=== PATIENT | female | born 1960 | race Caucasian/White ===

== ENCOUNTER → 2017-06-24 | Outpatient (CLI) | payer OTHER | LOC: FIMAGING 15:10 | PROVIDERS: ATTEND Internal Medicine | DX: Z12.31 Encounter for screening mammogram for malignant neoplasm of breast (principal) | CPT/HCPCS: G0202 ==

== ENCOUNTER 2018-03-23 14:43 | Inpatient (IN) | payer OTHER ==
--- NOTE | 2018-03-23 14:55 | EDPHY ---
H & P Time Seen by Provider: 03/23/18 14:54 HPI/ROS: Chief complaint. Altered mental status HPI. 57-year-old female here with altered mental status. Apparently she was well last evening and went to a green party. Around midnight she complained to her that she had whole body pain. She did not specifically tell him that she had a headache but he asked her about 1 side of her body or the other and she said her whole body. He notes she seemed to be having trouble thinking and speaking. She can walk however she is slow and somewhat shuffling. She has confusion and amnesia to events yesterday. Maybe she has had a fever and has had a cough the last 2 days. She did take some cough medicine but did not apparently take any extra. There has been no complaint of chest pain or trouble breathing or abdominal pain. No similar symptoms previously. Patient tells me now she has a slight posterior headache ROS Constitutional. Possible fever Eyes. no problems with vision ENT. no sore throat, no nasal drainage Cardiovascular. no chest pain Respiratory. no shortness of breath, no cough Abdominal. no abdominal pain, no nausea/vomiting, no diarrhea . no problems urinating MS. no calf pain/swelling, no neck/back pain, no joint pain Skin. no rash Lymph. no swollen glands Neuro. Headache, confusion Past Medical/Surgical History: Hypothyroid, dyslipidemia Social History: , nonsmoker, no alcohol Smoking Status: Never smoked Physical Exam: General Appearance: Alert well-developed female moderate distress. Vital signs significant for temp 37.6 degrees and heart rate 108 Eyes: Pupils equal and round no pallor or injection. ENT, Mouth: Mucous membranes are moist. Respiratory: There are no retractions, lungs are clear to auscultation. Cardiovascular: Regular rate and rhythm. Gastrointestinal: Abdomen is soft and nontender, no masses, bowel sounds normal. Neurological: Awake and alert, sensory and motor exams grossly normal. Speech is slow but normal. Cranial nerves are intact. There is no pronator drift. [id number] is normal. Patient has confusion but able to do [id number] Skin: Warm and dry, no rashes. Musculoskeletal: Neck is supple nontender. Extremities symmetrical, full range of motion. Psychiatric: Patient is oriented X 2; patient cannot tell me month and thinks it is 19 something when I asked her about the year; there is no agitation. Constitutional: Initial Vital Signs Temperature (C) 37.0 C 03/23/18 14:46 Heart Rate 108 H 03/23/18 14:46 Respiratory Rate 18 03/23/18 14:46 Blood Pressure 127/90 H 03/23/18 14:46 O2 Sat (%) 94 03/23/18 14:46 O2 Delivery Mode Room Air Allergies/Adverse Reactions: No Known Allergies Allergy (Unverified 03/23/18 14:52) Home Medications: Medication Instructions Recorded Levothyroxine 03/23/18 Lipitor 10 mg (*) 03/23/18 Medical Decision Making - Diagnostics EKG Interpretation: EKG interpreted by me shows sinus tachycardia. Normal interval axis. QRS is normal there is no significant ST elevation or depression. There is no arrhythmia. The rate is 106 Imaging Results: Imaging Impressions Chest X-Ray 03/23/18 15:10 Impression: No acute findings in the chest. Chest x-ray interpreted by me is normal. 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 Less likely to be dissection. This is reviewed by me and discussed Dr. Lerner MRI head shows no evidence of stroke. Again reviewed by me and discussed with Dr. Lerner Procedures: IV normal saline, monitor. Sepsis workup. ED Course/Re-evaluation: I consulted and discussed case with Dr. Steele for neurology who recommends CTA of head and neck as well as MRI brain without contrast. Re-evaluation at 5:00 p.m.--patient's symptoms continue. She is awake. She has no complaints. She is still has poor memory of events from earlier today and yesterday Family and I discussed imaging lab EKG findings. We discussed treatment plan including recommendation for admission. She expresses understanding and agreement Patient does have a UTI. It is sent for culture. She is given IV Rocephin I consulted discussed case with Dr. Bran who agrees to the admission and will see the patient in the emergency department Differential Diagnosis: I considered sepsis, drug intoxication or withdrawal, transient global amnesia, CVA. - Data Points Laboratory Results: Laboratory Results 03/23/18 14:54 03/23/18 14:54 03/23/18 03/23/18 03/23/18 15:40 15:09 15:02 WBC RBC Hgb POC Hgb 14.6 gm/dL gm/dL (12.6-16.3) Hct POC Hct 43 % % (38-47) MCV MCH MCHC RDW Plt Count MPV Neut % (Auto) Lymph % (Auto) [place] % (Auto) Eos % (Auto) Baso % (Auto) Nucleat RBC Rel Count Absolute Neuts (auto) Absolute Lymphs (auto) Absolute Monos (auto) Absolute Eos (auto) Absolute Basos (auto) Absolute Nucleated RBC Immature Gran % Immature Gran # PT INR APTT POC Blood Source VENOUS Patient Temperature 37.0 DEGREES DEGREES POC VBG pH 7.46 H (7.31-7.42) POC VBG pCO2 31 mmHg L mmHg (40-44) POC VBG pO2 62 mmHg H mmHg (35-40) POC VBG HCO3 22 mEq/L mEq/L (22-26) POC VBG Total CO2 23 mEq/L mEq/L (21-27) POC VBG Base Excess -2.0 mEq/L mEq/L (-2.5-2.5) VBG Lactic Acid POC Mix VBG O2 Sat 93 % H % (65-75) POC Sodium 140 mEq/L mEq/L (135-145) Sodium POC Potassium 3.6 mEq/L mEq/L (3.3-5.0) Potassium POC Chloride 107 mEq/L mEq/L (97-110) Chloride Carbon Dioxide Anion Gap POC BUN 16 mg/dL mg/dL (7-23) BUN Creatinine POC Creatinine 0.8 mg/dL mg/dL (0.6-1.0) Estimated GFR Glucose POC Glucose 143 mg/dL H mg/dL (70-100) POC Lactic Acid [place] 1.0 mmol/L mmol/L (0.7-2.1) Calcium Total Bilirubin Urine Color YELLOW Urine Appearance MODERATELY TURBID Urine pH 5.0 (5.0-7.5) Ur Specific [place] 1.025 (1.002-1.030) Urine Protein NEGATIVE (NEGATIVE) Urine Ketones NEGATIVE (NEGATIVE) Urine Blood 2+ H (NEGATIVE) Urine Nitrate NEGATIVE (NEGATIVE) Urine Bilirubin NEGATIVE (NEGATIVE) Urine Urobilinogen NEGATIVE EU EU (0.2-1.0) Ur Leukocyte Esterase 3+ H (NEGATIVE) Urine RBC 15-25 /hpf H /hpf (0-3) Urine WBC 15-25 /hpf H /hpf (0-3) Ur Epithelial Cells TRACE /lpf /lpf (NONE-1+) Urine Mucus 1+ /lpf /lpf (NONE-1+) Urine Glucose NEGATIVE (NEGATIVE) Urine Opiates Screen NEGATIVE (NEGATIVE) Urine Barbiturates NEGATIVE (NEGATIVE) Ur Phencyclidine Scrn NEGATIVE (NEGATIVE) Ur Amphetamine Screen NEGATIVE (NEGATIVE) U Benzodiazepines Scrn NEGATIVE (NEGATIVE) Urine Cocaine Screen NEGATIVE (NEGATIVE) U Marijuana (THC) Screen NEGATIVE (NEGATIVE) 03/23/18 03/23/18 03/23/18 14:54 14:54 14:54 WBC RBC Hgb POC Hgb Hct POC Hct MCV MCH MCHC RDW Plt Count MPV Neut % (Auto) Lymph % (Auto) [place] % (Auto) Eos % (Auto) Baso % (Auto) Nucleat RBC Rel Count Absolute Neuts (auto) Absolute Lymphs (auto) Absolute Monos (auto) Absolute Eos (auto) Absolute Basos (auto) Absolute Nucleated RBC Immature Gran % Immature Gran # PT 13.7 SEC SEC (12.0-15.0) INR 1.03 (0.83-1.16) APTT 26.9 SEC SEC (23.0-38.0) POC Blood Source Patient Temperature POC VBG pH POC VBG pCO2 POC VBG pO2 POC VBG HCO3 POC VBG Total CO2 POC VBG Base Excess VBG Lactic Acid 1.0 mmol/L mmol/L (0.7-2.1) POC Mix VBG O2 Sat POC Sodium Sodium 140 mEq/L mEq/L (135-145) POC Potassium Potassium 3.8 mEq/L mEq/L (3.3-5.0) POC Chloride Chloride 110 mEq/L mEq/L (97-110) Carbon Dioxide 23 mEq/l mEq/l (22-31) Anion Gap 7 mEq/L L mEq/L (8-16) POC BUN BUN 16 mg/dL mg/dL (7-23) Creatinine 0.7 mg/dL mg/dL (0.6-1.0) POC Creatinine Estimated GFR > 60 Glucose 127 mg/dL H mg/dL (70-100) POC Glucose POC Lactic Acid Mayur Calcium 9.2 mg/dL mg/dL (8.5-10.4) Total Bilirubin 1.0 mg/dL mg/dL (0.1-1.4) Urine Color Urine Appearance Urine pH Ur Specific [place] Urine Protein Urine Ketones Urine Blood Urine Nitrate Urine Bilirubin Urine Urobilinogen Ur Leukocyte Esterase Urine RBC Urine WBC Ur Epithelial Cells Urine Mucus Urine Glucose Urine Opiates Screen Urine Barbiturates Ur Phencyclidine Scrn Ur Amphetamine Screen U Benzodiazepines Scrn Urine Cocaine Screen U Marijuana (THC) Screen 03/23/18 14:54 WBC 8.92 10^3/uL 10^3/uL (3.80-9.50) RBC 5.00 10^6/uL 10^6/uL (4.18-5.33) Hgb 14.8 g/dL g/dL (12.6-16.3) POC Hgb Hct 42.3 % % (38.0-47.0) POC Hct MCV 84.6 fL fL (81.5-99.8) MCH 29.6 pg pg (27.9-34.1) MCHC 35.0 g/dL g/dL (32.4-36.7) RDW 13.3 % % (11.5-15.2) Plt Count 196 10^3/uL 10^3/uL (150-400) MPV 9.5 fL fL (8.7-11.7) Neut % (Auto) 79.5 % H % (39.3-74.2) Lymph % (Auto) 14.3 % L % (15.0-45.0) [place] % (Auto) 5.6 % % (4.5-13.0) Eos % (Auto) 0.3 % L % (0.6-7.6) Baso % (Auto) 0.1 % L % (0.3-1.7) Nucleat RBC Rel Count 0.0 % % (0.0-0.2) Absolute Neuts (auto) 7.08 10^3/uL H 10^3/uL (1.70-6.50) Absolute Lymphs (auto) 1.28 10^3/uL 10^3/uL (1.00-3.00) Absolute Monos (auto) 0.50 10^3/uL 10^3/uL (0.30-0.80) Absolute Eos (auto) 0.03 10^3/uL 10^3/uL (0.03-0.40) Absolute Basos (auto) 0.01 10^3/uL L 10^3/uL (0.02-0.10) Absolute Nucleated RBC 0.00 10^3/uL 10^3/uL (0-0.01) Immature Gran % 0.2 % % (0.0-1.1) Immature Gran # 0.02 10^3/uL 10^3/uL (0.00-0.10) PT INR APTT POC Blood Source Patient Temperature POC VBG pH POC VBG pCO2 POC VBG pO2 POC VBG HCO3 POC VBG Total CO2 POC VBG Base Excess VBG Lactic Acid POC Mix VBG O2 Sat POC Sodium Sodium POC Potassium Potassium POC Chloride Chloride Carbon Dioxide Anion Gap POC BUN BUN Creatinine POC Creatinine Estimated GFR Glucose POC Glucose POC Lactic Acid [place] Calcium Total Bilirubin Urine Color Urine Appearance Urine pH Ur Specific [place] Urine Protein Urine Ketones Urine Blood Urine Nitrate Urine Bilirubin Urine Urobilinogen Ur Leukocyte Esterase Urine RBC Urine WBC Ur Epithelial Cells Urine Mucus Urine Glucose Urine Opiates Screen Urine Barbiturates Ur Phencyclidine Scrn Ur Amphetamine Screen U Benzodiazepines Scrn Urine Cocaine Screen U Marijuana (THC) Screen Medications Given: Discontinued Medications Sodium Chloride (Ns) 1,000 mls @ 0 mls/hr IV ONCE ONE; Wide Open PRN Reason: Protocol Stop: 03/23/18 15:25 Last Admin: 03/23/18 15:34 Dose: 1,000 mls Point of Care Test Results: Chemistry 03/23/18 15:02 POC Sodium 140 mEq/L mEq/L (135-145) POC Potassium 3.6 mEq/L mEq/L (3.3-5.0) POC Chloride 107 mEq/L mEq/L (97-110) POC BUN 16 mg/dL mg/dL (7-23) POC Creatinine 0.8 mg/dL mg/dL (0.6-1.0) POC Glucose 143 mg/dL H mg/dL (70-100) Blood Gas/Lactic Acid-Arterial 03/23/18 15:09 POC Blood Source VENOUS Blood Gas/Lactic Acid-Venous 03/23/18 15:09 POC VBG pH 7.46 H (7.31-7.42) POC VBG pCO2 31 mmHg L mmHg (40-44) POC VBG pO2 62 mmHg H mmHg (35-40) POC VBG HCO3 22 mEq/L mEq/L (22-26) POC VBG Total CO2 23 mEq/L mEq/L (21-27) POC VBG Base Excess -2.0 mEq/L mEq/L (-2.5-2.5) POC Mix VBG O2 Sat 93 % H % (65-75) POC Lactic Acid [place] 1.0 mmol/L mmol/L (0.7-2.1) ISTAT H&H 03/23/18 15:02 POC Hgb 14.6 gm/dL gm/dL (12.6-16.3) POC Hct 43 % % (38-47) Departure - Departure Disposition: [facility] Inpatient Acute Clinical Impression: Altered mental status Qualifiers: Altered mental status type: disorientation Qualified Code(s): R41.0 - Disorientation, unspecified Condition: Fair Referrals: NONE *PRIMARY CARE P,. [Primary Care Provider] - As per Instructions
--- NOTE | 2018-03-23 14:56 | CPEKG ---
Heart Rate: 106 RR Interval: 566 P-R Interval: 140 QRSD Interval: 84 QT Interval: 340 QTC Interval: 452 P [place]: 47 QRS [place]: 1 T Wave [place]: 18 EKG Severity - OTHERWISE NORMAL ECG - EKG Impression: SINUS TACHYCARDIA Electronically Signed By: Miles Campos 23-Mar-2018 16:54:51
[2018-03-23 15:20] LABS: PLATELET COUNT 196 10^3/uL (150-400)
[2018-03-23] MEDS ORDERED: NS 1,000 ML IV ONE ×2 (15:24→17:10)
[2018-03-23 15:28] LABS: INR 1.03 (0.83-1.16); PROTIME(PATIENT) 13.7 SEC (12.0-15.0)
[2018-03-23] MEDS ORDERED: IOPAMIDOL (ISOVUE 370) 100 ML BTL IV ONE (15:32)
[2018-03-23] MEDS ORDERED: ONDANSETRON 4 MG/2 ML VIAL IVP PRN (17:16)
[2018-03-23] MEDS ORDERED: ONDANSETRON DISINTEGRATING 4 MG TAB PO PRN (17:16)
--- NOTE | 2018-03-23 19:18 | PDGENHP ---
History and Physical - Chief Complaint Acute encephalopathy - History of Present Illness Primary care provider: Dr. Kari Cruz HPI: 57-year-old female presenting with acute encephalopathy characterized as confusion, delayed processing, thought blocking with associated preceding myalgias, dark urine. Patient's is the primary source of information, as the patient is having a difficult time expressing herself. The patient's reports that they had a very physically active day on 03/22, working in the garden for approximately 4 hr with minimal oral intake by the patient. He reports that he noted subsequent dark urine and the patient was expressing symptomatic myalgias with onset at approximately midnight on the evening prior to this presentation. Upon awakening on 03/23, the patient was having difficulty expressing herself, difficulty speaking sensically, and the duration of the symptoms persisted throughout the day, warranting presentation. The patient's did note associated nonproductive cough and the patient did express that her throat was feeling sore as were her tonsils. History Information - Allergies/Home Medication List Allergies/Adverse Reactions: No Known Allergies Allergy (Unverified 03/23/18 14:52) Home Medications: Ibuprofen [Motrin (*)] 400 mg PO Q8 PRN 03/23/18 [Last Taken 03/23/18] Levothyroxine [Synthroid 112 mcg (*)] 112 mcg PO DAILY06 03/23/18 [Last Taken ] Pravastatin Sodium [Pravachol] 40 mg PO DAILY 03/23/18 [Last Taken 03/22/18] I have personally reviewed and updated: family history, medical history, social history, surgical history - Past Medical History no pertinent PMH - Surgical History Reports: no pertinent surgical hx - Family History Additional family history: No family history of rheumatologic issues or kidney stones; patient's recently was treated for a URI - Social History Smoking Status: Never smoked Alcohol Use: None Drug Use: None Additional social history: Normally independent in ADLs Review of Systems Review of Systems: ROS: 10pt was reviewed & negative except for what was stated in HPI & below Constitutional: Reports: malaise EENMT: Reports: sore throat Respiratory: Reports: cough Muscolosketal: Reports: muscle pain, neck pain (Right-sided posterior) Neurological: Reports: other (Confusion, delayed thought processing, thought blocking) Physical Exam Physical Exam: Temp Pulse Resp BP Pulse Ox 38.1 C 84 18 166/96 H 95 03/23/18 18:48 03/23/18 18:48 03/23/18 18:48 03/23/18 18:48 03/23/18 18:48 Constitutional: no apparent distress, appears nourished, not in pain, No uncomfortable Eyes: PERRL, anicteric sclera, EOMI, other (No photophobia induced on exam) Ears, Nose, Mouth, Throat: moist mucous membranes, hearing normal, ears appear normal, no oral mucosal ulcers Cardiovascular: regular rate and rhythym, no murmur, rub, or gallop, No edema Respiratory: no respiratory distress, no rales or rhonchi, clear to auscultation Gastrointestinal: normoactive bowel sounds, no palpable masses, No guarding, No distension Genitourinary: other (Suprapubic tenderness, right flank tenderness) Skin: warm, No abrasion, No rash Musculoskeletal: other (Mild right posterior neck pain with left rotation as well as anterior flexion but no overt meningismus) Neurologic: sensation intact bilaterally, CN II-XII Intact, other (Notably word- finding difficulty, thought blocking, delayed processing), No AAOx3 (Alert awake oriented times person only), No weakness (Motor strength 5/5 bilaterally) , No facial droop Psychiatric: not anxious, encephalopathic, poor memory, No agitated Lab Data & Imaging Review 03/23/18 14:54 03/23/18 14:54 WBC 8.92 10^3/uL (3.80-9.50) 03/23/18 14:54 RBC 5.00 10^6/uL (4.18-5.33) 03/23/18 14:54 Hgb 14.8 g/dL (12.6-16.3) 03/23/18 14:54 POC Hgb 14.6 gm/dL (12.6-16.3) 03/23/18 15:02 Hct 42.3 % (38.0-47.0) 03/23/18 14:54 POC Hct 43 % (38-47) 03/23/18 15:02 MCV 84.6 fL (81.5-99.8) 03/23/18 14:54 MCH 29.6 pg (27.9-34.1) 03/23/18 14:54 MCHC 35.0 g/dL (32.4-36.7) 03/23/18 14:54 RDW 13.3 % (11.5-15.2) 03/23/18 14:54 Plt Count 196 10^3/uL (150-400) 03/23/18 14:54 MPV 9.5 fL (8.7-11.7) 03/23/18 14:54 Neut % (Auto) 79.5 % (39.3-74.2) H 03/23/18 14:54 Lymph % (Auto) 14.3 % (15.0-45.0) L 03/23/18 14:54 [place] % (Auto) 5.6 % (4.5-13.0) 03/23/18 14:54 Eos % (Auto) 0.3 % (0.6-7.6) L 03/23/18 14:54 Baso % (Auto) 0.1 % (0.3-1.7) L 03/23/18 14:54 Nucleat RBC Rel Count 0.0 % (0.0-0.2) 03/23/18 14:54 Absolute Neuts (auto) 7.08 10^3/uL (1.70-6.50) H 03/23/18 14:54 Absolute Lymphs (auto) 1.28 10^3/uL (1.00-3.00) 03/23/18 14:54 Absolute Monos (auto) 0.50 10^3/uL (0.30-0.80) 03/23/18 14:54 Absolute Eos (auto) 0.03 10^3/uL (0.03-0.40) 03/23/18 14:54 Absolute Basos (auto) 0.01 10^3/uL (0.02-0.10) L 03/23/18 14:54 Absolute Nucleated RBC 0.00 10^3/uL (0-0.01) 03/23/18 14:54 Immature Gran % 0.2 % (0.0-1.1) 03/23/18 14:54 Immature Gran # 0.02 10^3/uL (0.00-0.10) 03/23/18 14:54 PT 13.7 SEC (12.0-15.0) 03/23/18 14:54 INR 1.03 (0.83-1.16) 03/23/18 14:54 APTT 26.9 SEC (23.0-38.0) 03/23/18 14:54 POC Blood Source VENOUS 03/23/18 15:09 Patient Temperature 37.0 DEGREES 03/23/18 15:09 POC VBG pH 7.46 (7.31-7.42) H 03/23/18 15:09 POC VBG pCO2 31 mmHg (40-44) L 03/23/18 15:09 POC VBG pO2 62 mmHg (35-40) H 03/23/18 15:09 POC VBG HCO3 22 mEq/L (22-26) 03/23/18 15:09 POC VBG Total CO2 23 mEq/L (21-27) 03/23/18 15:09 POC VBG Base Excess -2.0 mEq/L (-2.5-2.5) 03/23/18 15:09 VBG Lactic Acid 1.0 mmol/L (0.7-2.1) 03/23/18 14:54 POC Mix VBG O2 Sat 93 % (65-75) H 03/23/18 15:09 POC Sodium 140 mEq/L (135-145) 03/23/18 15:02 Sodium 140 mEq/L (135-145) 03/23/18 14:54 POC Potassium 3.6 mEq/L (3.3-5.0) 03/23/18 15:02 Potassium 3.8 mEq/L (3.3-5.0) 03/23/18 14:54 POC Chloride 107 mEq/L (97-110) 03/23/18 15:02 Chloride 110 mEq/L (97-110) 03/23/18 14:54 Carbon Dioxide 23 mEq/l (22-31) 03/23/18 14:54 Anion Gap 7 mEq/L (8-16) L 03/23/18 14:54 POC BUN 16 mg/dL (7-23) 03/23/18 15:02 BUN 16 mg/dL (7-23) 03/23/18 14:54 Creatinine 0.7 mg/dL (0.6-1.0) 03/23/18 14:54 POC Creatinine 0.8 mg/dL (0.6-1.0) 03/23/18 15:02 Estimated GFR > 60 03/23/18 14:54 Glucose 127 mg/dL (70-100) H 03/23/18 14:54 POC Glucose 143 mg/dL (70-100) H 03/23/18 15:02 POC Lactic Acid [place] 1.0 mmol/L (0.7-2.1) 03/23/18 15:09 Calcium 9.2 mg/dL (8.5-10.4) 03/23/18 14:54 Total Bilirubin 1.0 mg/dL (0.1-1.4) 03/23/18 14:54 Urine Color YELLOW 03/23/18 15:40 Urine Appearance MODERATELY TURBID 03/23/18 15:40 Urine pH 5.0 (5.0-7.5) 03/23/18 15:40 Ur Specific [place] 1.025 (1.002-1.030) 03/23/18 15:40 Urine Protein NEGATIVE (NEGATIVE) 03/23/18 15:40 Urine Ketones NEGATIVE (NEGATIVE) 03/23/18 15:40 Urine Blood 2+ (NEGATIVE) H 03/23/18 15:40 Urine Nitrate NEGATIVE (NEGATIVE) 03/23/18 15:40 Urine Bilirubin NEGATIVE (NEGATIVE) 03/23/18 15:40 Urine Urobilinogen NEGATIVE EU (0.2-1.0) 03/23/18 15:40 Ur Leukocyte Esterase 3+ (NEGATIVE) H 03/23/18 15:40 Urine RBC 15-25 /hpf (0-3) H 03/23/18 15:40 Urine WBC 15-25 /hpf (0-3) H 03/23/18 15:40 Ur Epithelial Cells TRACE /lpf (NONE-1+) 03/23/18 15:40 Urine Mucus 1+ /lpf (NONE-1+) 03/23/18 15:40 Urine Glucose NEGATIVE (NEGATIVE) 03/23/18 15:40 Urine Opiates Screen NEGATIVE (NEGATIVE) 03/23/18 15:40 Urine Barbiturates NEGATIVE (NEGATIVE) 03/23/18 15:40 Ur Phencyclidine Scrn NEGATIVE (NEGATIVE) 03/23/18 15:40 Ur Amphetamine Screen NEGATIVE (NEGATIVE) 03/23/18 15:40 U Benzodiazepines Scrn NEGATIVE (NEGATIVE) 03/23/18 15:40 Urine Cocaine Screen NEGATIVE (NEGATIVE) 03/23/18 15:40 U Marijuana (THC) Screen NEGATIVE (NEGATIVE) 03/23/18 15:40 Visualized and Interpreted Chest x-ray results: Yes Chest X-Ray results: no infiltrate Visualized and Interpreted EKG results: Yes EKG Interpretation: Positive for: other (Sinus tach with Q-wave in lead 3) Assessment & Plan Assessment: 57-year-old female presents with acute encephalopathy Plan: 1. Acute encephalopathy. New problem this provider, further workup indicated. Evidenced by global brain dysfunction characterized as delayed processing, thought blocking, confusion, all of which are acute changes from her baseline, suddenly occurring on the morning of presentation and most likely secondary to the toxic effects of infection. Possible cause of infection include urinary tract with pyelonephritis verses upper respiratory verses meningitis. I think the most likely etiology is urinary tract with pyelonephritis given her right flank tenderness, suprapubic tenderness, dark urine, potentially positive urinalysis. -treat empirically for infection, gauge whether mental status improves -patient is already seeing some improvement with IV fluids -if mental status does not improve, will get lumbar puncture in a.m. -get cognitive therapy evaluation in a.m. -discussed with Dr. Miles Campos, he reports to me that the patient's CT angiogram of the head and neck as well as brain MRI are all normal, he has discussed with Dr. Luis Steele, and I would like to get a neurology consultation in the a.m., contingent on whether she experiences resolution of symptoms with treatment of possible infection 2. Possible pyelonephritis. Acute, evidenced by potentially positive urinalysis , right flank tenderness, suprapubic tenderness and urinary changes -urine culture and blood cultures pending -empirically administered IV ceftriaxone, utilize 2 g to cover urinary source as well as any potential meningitis in case the patient's mental status does not improve with treatment of possible urinary source, in which case I will get lumbar puncture to rule out meningitis 3. Hyperglycemia. Acute, most likely a reactive hyperglycemia, reviewed outside records including 06/14/[address] Kari Cruz representing hemoglobin A1c of 6.1%, recheck A1c in a.m. Diet. Regular Prophylaxis. Low risk patient, SCDs Code. Full Disposition. Anticipated discharge is 03/24, pending clinical improvement of conditions outlined above.
[2018-03-23] MEDS ORDERED: IBUPROFEN 200 MG TAB PO PRN (19:25)
[2018-03-23] MEDS: NS W/ 20 KCl/L 1,000 ML IV SCH (22:05)
[2018-03-24 05:51] LABS: PLATELET COUNT 156 10^3/uL (150-400)
[2018-03-24] MEDS: LEVOTHYROXINE 112 MCG TAB PO SCH (06:10)
[2018-03-24] MEDS: ACETAMINOPHEN 325 MG TAB PO PRN (06:10)
--- NOTE | 2018-03-24 09:11 | GCON ---
[f rep st] CONSULTATION NEUROLOGIC CONSULTATION REFERRING PHYSICIAN: Clinton Bran MD HISTORY: The patient is a 57-year-old woman who I am seeing in neurologic consultation and I am able to obtain a history from review of the emergency room department records, the history and physical f rom Dr. Bran as well as direct conversation with the patient and the patient's . She has ba sically been a healthy individual and over the last 24 hours has developed a syndrome of confusion an d language impairment. She has been active and busy but yesterday in the gun examiner she had gotte n up and was not feeling very well with aching throughout her body. She reported having a little bit of dark urine. She was a little bit confused at times and could be disoriented and expression of la nguage was clearly not normal. She had been very active the day before working outside. When she go t up yesterday morning she was still having the same basic problems and came to the emergency room fo r evaluation later in the afternoon, and has not had improvement. There is a report of nonproductive cough and a little sore throat, but no specific documented fevers. She has never had a similar synd mitra to this in the past. She has had diagnostic workup so far showing normal white count, a little bit of elevation of the pito trophil count. Normal INR. Blood chemistry on admission showed no evidence of dehydration and other march normal electrolytes. Subsequent labs have shown mild elevation of blood glucose. TSH is a low at 0.37. AST and ALT are normal. Urinalysis shows 15-25 white cells. Tox screen is negative. Diagnostic imaging has revealed unremarkable CT angiogram of the head and neck and a brain MRI that d oes not show any evidence of acute stroke or hemorrhage but subtlety mentioned with some calcificatio n versus hemosiderin in the region of the right tentorium, but no obvious correlate on CT making this of unclear significance. She is currently receiving p.r.n. medications of Tylenol, Motrin, Synthroid, Zofran. She is getting IV fluid. Ceftriaxone was initiated in the emergency department. I do not see that currently ongoin g. PAST MEDICAL HISTORY: Notable for hyperlipidemia. She does not have a history of any cognitive diso rders, migraines, seizures or stroke or TIA. Some thyroid disease. MEDICATIONS: She is on pravastatin, levothyroxine, ibuprofen as needed. FAMILY HISTORY: Generally unremarkable. Her mother apparently had some memory problems later in lif e, but no specific diagnosis of dementia. The patient herself is unable to provide really meaningful history. She does not have history of smoking or drug use or alcohol. She is normally completely i ndependent. She is and her is at her bedside. PHYSICAL EXAM: VITAL SIGNS: Her blood pressure 130/84, pulse of 92, respirations 16, temperature 37 .3, the T-max reached was 38.6 at 2300 yesterday. GENERAL: She is well developed in no acute distress. NECK: Supple with no bruits or masses. CARDIAC: Regul ar rate and rhythm. No murmur. NEUROLOGIC Exam is characterized by her being alert but unsustained attention. She has profound difficulty with language skills. She often looks toward me and either r epeats the question or does not answer at all and then smiles and seems to want to try to communicate , but can't often express language either at all or she will make paraphasic errors or attempt to fol low commands but not be able to follow out any specificity. For example, I might ask her to stick up her left thumb and she will eventually look in her left hand, and spread her fingers but not compreh end what I am asking her. She generally cannot name objects. Even her wedding ring she had no words to even attempt to explain what it was or represented. She could repeat a few words and phrases. S he could not perform calculations. Without guidance she can't follow most commands to any specificit y on laterality. She is not oriented to her location, the month, the year or the city and she could not tell me the relationship she has with the man in the room who is her . If I told her it w as her she could shake her head yes and seemed to comprehend but could not come up with that spontaneously. HEENT: Pupils 3 mm and reactive. Extraocular movements are intact. Normal facial s ensation and strength. Motor exam: Normal muscle bulk and tone, with inconsistent effort due to mot or impersistence but I do not detect any asymmetry. Sensation seems to be preserved bilaterally. Re flexes 1+ and symmetric. No Babinski signs. All the diagnostic studies are as outlined above. IMPRESSION: The patient is presenting with a subacute change in her mental state characterized by co nfusion and a prominent aphasia. Imaging does not reveal evidence of a left hemisphere focal lesion such as stroke or hemorrhage or mass. There is some mild fever that has been documented and the ques tion of urinary tract infection. Our differential diagnosis also would include a MRI negative ischem ia, encephalitis with focal features, meningitis, autoimmune encephalitis. The labs so far are very nonspecific and there is no evidence of intoxication. For now, we will move forward with further wor kup to include lumbar puncture. Because of the fever and focal findings, we will go ahead and cover her for herpes encephalitis and I will follow along closely. I had a detailed discussion with the pa edmundo's and he understands what we are evaluating. Total unit time of 70 minutes. /[id number]/MODL
[2018-03-24] MEDS: PRAVASTATIN SODIUM 40 MG TAB PO SCH (10:35)
[2018-03-24] MEDS: ACYCLOVIR 800 MG in D5W 250 ML IV SCH ×3 (10:35→23:18)
[2018-03-24] MEDS ORDERED: LIDOCAINE 1% 300 MG/30 ML SDV ONE (12:35)
[2018-03-24] MEDS: NS W/ 20 KCl/L 1,000 ML IV SCH (14:46)
--- NOTE | 2018-03-24 15:18 | HOSPPROG ---
Hospitalist Progress Note Assessment/Plan: Assessment: 57-year-old female presents with acute encephalopathy Plan: 1. Acute aphasia. Expressive and receptive, new problem and worsening today, further w/u indicated. No improvement w/ Abx and IVF o/n -d/w Dr. Nguyễn, we both agree that it is somewhat unusual for a viral encephalitis to have such focality in the neurologic symptomology, but we agree that this is likely to be a CSF irritant process and will pursue LP w/ empiric Acyclovir IV until resulted -w/ a normal PCT, it is unlikely this is a bacterial meningitis, but will cont CTX 2g until CSF resulted -hold on IV steroids unless other focal neuro sx evolve 2. Suspected asymptomatic bacturia. Unlikely cause of patient's presentation, given no improvement on Abx, monitor UCx 3. Hyperglycemia. Acute, most likely a reactive hyperglycemia, A1c 6.2% Diet. Regular Prophylaxis. Low risk patient, SCDs Code. Full Disposition. Anticipated discharge uncertain, anticipated LOS > 48hrs for reasonable medical necessity given worsening of aphasia/neuro symptoms requiring additional w/u w/ LP, neuro consult, empiric IV Acyclovir given possible HSV encephalitis. Subjective: fever o/n, verbal expression worsening today Objective: Vital Signs Temp Pulse Resp BP Pulse Ox 36.6 C 92 16 130/78 H 94 03/24/18 12:00 03/24/18 12:00 03/24/18 12:00 03/24/18 12:00 03/24/18 12:00 PT 13.7 SEC (12.0-15.0) 03/23/18 14:54 INR 1.03 (0.83-1.16) 03/23/18 14:54 - Physical Exam Constitutional: no apparent distress, appears nourished, not in pain, No uncomfortable Cardiovascular: regular rate and rhythym, no murmur, rub, or gallop, No edema Respiratory: no respiratory distress, no rales or rhonchi, clear to auscultation Gastrointestinal: normoactive bowel sounds, no palpable masses, tenderness ( mild R flank), No guarding, No distension Neurologic: other (expressive and receptive aphasia, difficulty following commands), No weakness (motor 5/5 bilat UE/LE), No facial droop Psychiatric: not anxious, flat affect, No agitated ICD10 Worksheet Patient Problems: Problems Problem Status Onset Altered mental status Acute
--- NOTE | 2018-03-24 15:39 | ASMTCMCOM ---
CM Note CM Note Notes: Pt in for acute encephelopathy Resides independently with . Pt had lumbar puncture today. RESPIRATORY CARE SPECIALIST eval pending. Case Management to follow for d/c planning. Date Signed: 03/24/2018 03:39 PM Electronically Signed By:BRADLEY Sheppard
--- NOTE | 2018-03-24 16:37 | PDMN ---
Medical Necessity Medical necessity: MCG:GRG Neurology: acute aphasia worsening, no improvement with IVF , ABX, neuro consult, poss CSF irritant process, further workup and tx needed > 2 midnights
--- NOTE | 2018-03-24 22:07 | CPEKG ---
Heart Rate: 86 RR Interval: 698 P-R Interval: 160 QRSD Interval: 90 QT Interval: 356 QTC Interval: 426 P Union: 17 QRS Union: -2 T Wave Union: 24 EKG Severity - NORMAL ECG - EKG Impression: SINUS RHYTHM EKG Impression: RATES HAVE SLOWED IN COMPARISON TO PRIOR Electronically Signed By: Clinton Ram 26-Mar-2018 11:39:05
[2018-03-25] MEDS ORDERED: GADOBUTROL 10 ML VIAL IVP ONE (14:49)
[2018-03-25] MEDS ORDERED: methylPREDNISolone SOD SUCC 125 MG/2 ML VIAL ONE (20:12)
[2018-03-25] MEDS: methylPREDNISolone SOD SUCC 1 GM in D5W 100 ML IV SCH (22:00)
[2018-03-26] MEDS: ACYCLOVIR 800 MG in D5W 250 ML IV SCH ×5 (05:00→21:41)
[2018-03-26] MEDS: NS W/ 20 KCl/L 1,000 ML IV SCH ×2 (05:00→18:42)
[2018-03-26] MEDS: PRAVASTATIN SODIUM 40 MG TAB PO SCH ×2 (05:39→09:20)
[2018-03-26] MEDS: LEVOTHYROXINE 112 MCG TAB PO SCH ×2 (05:39→06:10)
[2018-03-26] MEDS: methylPREDNISolone SOD SUCC 1 GM in D5W 100 ML IV SCH (09:20)
[2018-03-26] MEDS ORDERED: LIDOCAINE 1% 300 MG/30 ML SDV ONE (13:31)
--- NOTE | 2018-03-26 18:34 | HOSPPROG ---
Hospitalist Progress Note Assessment/Plan: Assessment: 57-year-old female presents with acute encephalopathy and acute aphasia 2/2 acute inflammatory encephalitis Plan: 1. Acute aphasia. Expressive and receptive, sx improving s/p initiation of IV steroids -counseled that patient likely to benefit more from SALES PROJECT ENGINEER now that she can actively engage, family feels like she is 65% of baseline 2. Suspected asymptomatic bacturia. Unlikely cause of patient's presentation, given no improvement on Abx, monitor UCx 3. Hyperglycemia. Acute, most likely a reactive hyperglycemia, A1c 6.2% 4. Acute encephalopathy. Evidenced by global brain dysfunction characterized as poor short term memory, disorientation, confusion, all of which are acute changes from her baseline, 2/2 metabolic effects of encephalitis -more pronounced now that she can verbally communicate, counseled family it will likely be a lingering symptom which will improve as process resolved 5. 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 Evidenced by elevated protein on LP, rapid response to steroids -given the density and focality of her symptoms, we have considered potential infxn etiologies known to occasionally have negative pleocytosis (TB, brucella, syphilis, VZV) and have sent those tests from today's LP, as well as NMDA receptor Ab, Paraneoplastic CSF, prion dx -s/p 2 of 3 high dose IV methylpred, will d/w Dr. Nguyễn duration and possible transition to PO, as well as anticipated risk of recurrence -engage w/ PT/OT/SALES PROJECT ENGINEER tomorrow when able Diet. Regular Prophylaxis. Low risk patient, SCDs Code. Full Disposition. Anticipated discharge uncertain, 03/28 Subjective: speech improving today, more verbally communicative, more steady on feet Objective: Vital Signs Temp Pulse Resp BP Pulse Ox 37.2 C 88 16 134/86 H 92 03/26/18 16:25 03/26/18 16:25 03/26/18 16:25 03/26/18 16:25 03/26/18 16:25 Microbiology 03/24/18 14:48 Gram Stain - Final Cerebral Spinal Fluid 03/24/18 15:12 Gram Stain - Final Cerebral Spinal Fluid 03/25/18 03/26/18 03/27/18 05:59 05:59 05:59 Intake Total 500 950 Output Total 1200 300 400 Balance -700 -300 550 PT 13.7 SEC (12.0-15.0) 03/23/18 14:54 INR 1.03 (0.83-1.16) 03/23/18 14:54 - Time Spent With Patient Time Spent with Patient: greater than 35 minutes Time Spent with Patient: Greater than 35 minutes spent on this patients care, greater than 50% of time spent counseling, educating, and coordinating care regarding the above mentioned plan. - Physical Exam Constitutional: no apparent distress, appears nourished, not in pain, No uncomfortable Neurologic: AAOx3, CN II-XII Intact, No facial droop Psychiatric: not anxious, flat affect, poor memory, other (mild speech delay, naming 3/3, concentration 2/7, follows commands), No agitated ICD10 Worksheet Patient Problems: Problems Problem Status Onset Altered mental status Acute
[2018-03-26] MEDS: ACETAMINOPHEN 325 MG TAB PO PRN (21:42)
[2018-03-27] MEDS: LEVOTHYROXINE 112 MCG TAB PO SCH (05:16)
[2018-03-27] MEDS: NS W/ 20 KCl/L 1,000 ML IV SCH (05:16)
[2018-03-27] MEDS: ACYCLOVIR 800 MG in D5W 250 ML IV SCH (05:16)
[2018-03-27] MEDS: ACETAMINOPHEN 325 MG TAB PO PRN (05:31)
--- NOTE | 2018-03-27 07:08 | NEUROPROG ---
Assessment: Total unit time of 15 minutes. Patient is doing better on a daily basis now. Will stop the acyclovir with negative PCR and continue steroids but switch to po tomorrow. Repeat CSF results pending but no increased WBCs and just elevated protein. Subjective: Patient has no complaints and continues to do better daily with day 3/3 of IV steroids for today Objective: Vital Signs Temp Pulse Resp BP Pulse Ox 37.1 C 74 18 128/77 H 94 03/27/18 04:00 03/27/18 04:00 03/27/18 04:00 03/27/18 04:00 03/27/18 04:00 Microbiology 03/24/18 14:48 Gram Stain - Final Cerebral Spinal Fluid 03/24/18 15:12 Gram Stain - Final Cerebral Spinal Fluid 03/26/18 03/27/18 03/28/18 05:59 05:59 05:59 Intake Total 3690 Output Total 300 400 Balance -300 3290 PT 13.7 SEC (12.0-15.0) 03/23/18 14:54 INR 1.03 (0.83-1.16) 03/23/18 14:54 Alert and attentive with aphasia but better. For the first time, she is able to follow some more specific commands today HSV PCR negative Allergies/Adverse Reactions: No Known Allergies Allergy (Unverified 03/23/18 14:52)
[2018-03-27] MEDS: PRAVASTATIN SODIUM 40 MG TAB PO SCH (09:07)
[2018-03-27] MEDS: methylPREDNISolone SOD SUCC 1 GM in D5W 100 ML IV SCH (09:07)
--- NOTE | 2018-03-27 14:46 | ASMTCMCOM ---
CM Note CM Note Notes: NUCLEAR FUEL PROCESSING TECHNICIAN rec inpatient rehab, OT rec home and PT rec HHC 24/hr supervision. Considering pt commercial insurance pt will qualify for HHC NUCLEAR FUEL PROCESSING TECHNICIAN/PT. Spoke with pt and family about HHC, provided HHC list and they will let CM know if they are interested and choice. CM to follow. Date Signed: 03/27/2018 02:45 PM Electronically Signed By:BRADLEY Sheppard
--- NOTE | 2018-03-27 17:38 | HOSPPROG ---
Hospitalist Progress Note Assessment/Plan: Assessment: 57-year-old female presents with acute encephalopathy and acute aphasia 2/2 acute inflammatory encephalitis Plan: 1. Acute aphasia. Expressive and receptive, sx improving s/p initiation of IV steroids -improving but continues to have exp aphasia w/ more complex communication, such as saying days of week in reverse order, cont w/ DIRECTOR OF HOME CARE HOSPICE and will likely require outpt therapy 2. Suspected asymptomatic bacturia. Unlikely cause of patient's presentation, given no improvement on Abx, monitor UCx 3. Hyperglycemia. Acute, most likely a reactive hyperglycemia, A1c 6.2% 4. Acute encephalopathy. Evidenced by global brain dysfunction characterized as poor short term memory, disorientation, confusion, all of which are acute changes from her baseline, 2/2 metabolic effects of encephalitis -more pronounced now that she can verbally communicate, patient is able to share the details of her life but does have some e/o thought blocking that persists; therapy reports that she is having difficulty w/ multi-tasking 5. 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 Evidenced by elevated protein on LP, rapid response to steroids -given the density and focality of her symptoms, we have considered potential infxn etiologies known to occasionally have negative pleocytosis (TB, brucella, syphilis, VZV) and have sent those tests from today's LP, as well as NMDA receptor Ab, Paraneoplastic CSF, prion dx -s/p 3 of 3 high dose IV methylpred -Dr. Nguyễn to determine duration and taper of PO steroids tomorrow -counseled patient, , family regarding the issues above, specifically the diagnosis, anticipated progressive recovery, and ongoing support needed Diet. Regular Prophylaxis. Low risk patient, SCDs Code. Full Disposition. Anticipated discharge uncertain, 03/28 Subjective: patient w/o STAUFFER, able to shower independently, having some difficulty multi-tasking Objective: Vital Signs Temp Pulse Resp BP Pulse Ox 36.8 C 76 16 132/78 H 93 03/27/18 12:00 03/27/18 12:00 03/27/18 12:00 03/27/18 12:00 03/27/18 12:00 Microbiology 03/24/18 14:48 Gram Stain - Final Cerebral Spinal Fluid 03/24/18 15:12 Gram Stain - Final Cerebral Spinal Fluid CSF Culture - Final 03/26/18 03/27/18 03/28/18 05:59 05:59 05:59 Intake Total 3690 1550 Output Total 300 400 450 Balance -300 3290 1100 PT 13.7 SEC (12.0-15.0) 03/23/18 14:54 INR 1.03 (0.83-1.16) 03/23/18 14:54 - Time Spent With Patient Time Spent with Patient: greater than 35 minutes Time Spent with Patient: Greater than 35 minutes spent on this patients care, greater than 50% of time spent counseling, educating, and coordinating care regarding the above mentioned plan. - Physical Exam Constitutional: no apparent distress, appears nourished, not in pain, No uncomfortable Neurologic: sensation intact bilaterally, CN II-XII Intact, other (AAOx2 ( person and place)), No weakness, No facial droop Psychiatric: not anxious, encephalopathic, poor memory, other (concentration 7/7 , thought blocking), No agitated ICD10 Worksheet Patient Problems: Problems Problem Status Onset Altered mental status Acute
[2018-03-28] MEDS: LEVOTHYROXINE 112 MCG TAB PO SCH (05:55)
[2018-03-28 08:11] VITALS: BP 128/93
--- NOTE | 2018-03-28 08:28 | NEUROPROG ---
Assessment: Total unit time of 15 minutes. Patient is doing better on a daily basis now. Will stop the acyclovir with negative PCR and continue steroids but switch to po tomorrow. Repeat CSF results pending but no increased WBCs and just elevated protein. 03/28/18: total unit time of 15 minutes. Discharge ok with me on 40mg prednisone po and call me next week to update Subjective: patient still feeling better Objective: Vital Signs Temp Pulse Resp BP Pulse Ox 36.7 C 69 13 128/93 H 95 03/28/18 08:00 03/28/18 08:00 03/28/18 08:00 03/28/18 08:00 03/28/18 08:00 Microbiology 03/24/18 14:48 Gram Stain - Final Cerebral Spinal Fluid 03/24/18 15:12 Gram Stain - Final Cerebral Spinal Fluid CSF Culture - Final 03/27/18 03/28/18 03/29/18 05:59 05:59 05:59 Intake Total 3690 1825 Output Total 400 450 Balance 3290 1375 PT 13.7 SEC (12.0-15.0) 03/23/18 14:54 INR 1.03 (0.83-1.16) 03/23/18 14:54 improved speech and orientation and following commands better, not normal but better Labs still pending Allergies/Adverse Reactions: No Known Allergies Allergy (Unverified 03/23/18 14:52)
[2018-03-28] MEDS: PRAVASTATIN SODIUM 40 MG TAB PO SCH (09:46)
[2018-03-28] MEDS: ACETAMINOPHEN 325 MG TAB PO PRN (09:48)
--- NOTE | 2018-03-28 15:00 | ASMTCMCOM ---
CM Note CM Note Notes: Today pt declines HHC. Pt does have a PCP in [place]. 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 No CM d/c needs identified. Date Signed: 03/28/2018 02:59 PM Electronically Signed By:BRADLEY Sheppard
--- NOTE | 2018-03-28 17:19 | PDDCSUM ---
Discharge Summary Discharge Summary: DISCHARGE SUMMARY FOLLOW-UP ITEMS: 1. CSF outstanding studies include NMDA receptor antibody, paraneoplastic, prion disease DATE OF ADMISSION: 03/23/2018 DATE OF DISCHARGE: 03/28/2018 DISCHARGE DIAGNOSES: 1. 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 Acute encephalopathy 3. Acute hyperglycemia 4. Suspected asymptomatic bacteriuria CONSULTATIONS: Neurology PROCEDURES / IMAGIN lumbar punctures both demonstrating high protein, normal glucose, no pleocytosis 2 brain MRIs demonstrating no abnormalities CHIEF COMPLAINT: Acute Aphasia and encephalopathy SUBJECTIVE: Patient is feeling well at time discharge, she continues to have some evidence of impaired memory and thought blocking PHYSICAL EXAM ON DISCHARGE: Systolic blood pressure is 130, heart rate 90, afebrile overnight, satting well on room air, alert awake oriented x3, her speech is fluent, coherent, slightly halted with mild evidence of ongoing thought blocking LABS ON DISCHARGE: IgG syphilis negative, CSF brucella pending at time of discharge, CSF TB test negative HOSPITAL COURSE BY PROBLEM: The patient presented with acute aphasia as well as encephalopathy characterized as poor short-term memory, disorientation, confusion, and further characterization of her aphasia demonstrated both expressive and receptive components. The exact etiology was somewhat unclear on presentation, and the patient underwent brain MRI to exclude focal CVA. She underwent a lumbar puncture and was empirically started on IV acyclovir and IV fluids until HSV was negative. She underwent a 2nd lumbar puncture for additional CSF sampling to be sent for NMDA as well as paraneoplastic labs. She was treated for a suspected diagnosis of autoimmune encephalitis with high-dose IV steroids including 1 g of daily methylprednisolone. After initiating the steroids, the patient's aphasia began to improve and her encephalopathy did as well. She was seen by the therapy modalities, and occupational therapy recommended ongoing outpatient occupational therapy to assist the patient with multi task recovery and speech language pathology also recommended outpatient therapy to assist with some ongoing speech delay and thought blocking. Dr. Bob Nguyễn recommended prednisone 40 mg daily and outpatient reassessment next week. DISCHARGE MEDICATIONS: Please see official discharge medication reconciliation sheet in chart , prednisone 40 mg daily. DISCHARGE INSTRUCTIONS: Please follow up with Dr. Bob Nguyễn as scheduled, you PCP thereafter. Please schedule outpatient occupational and speech therapy. TIME SPENT: Greater than 30 minutes were spent on direct patient care, as well as discharge planning and preparation.
[2018-03-31 11:45] LABS: BRUCELLA AB IGM Negative (Negative); BRUCELLA ANTIBODY IGG Negative (Negative); INTERPRETATION See Comments
== END 2018-03-28 11:49 | disposition home or self-care (01) | DRG 97 ==
LOC: F3N 18:43 → OBSVTOIN 03-24 09:23
PROVIDERS: ADMIT Internal Medicine; ATTEND Internal Medicine
PROC: 009U3ZX Drainage of Spinal Canal, Percutaneous Approach, Diagnostic (ICD-10-PCS; principal; 2018-03-24)
PROC: 009U3ZX Drainage of Spinal Canal, Percutaneous Approach, Diagnostic (ICD-10-PCS; 2018-03-26)
DX: G04.81 Other encephalitis and encephalomyelitis (principal); G93.49 Other encephalopathy; R47.01 Aphasia; R73.9 Hyperglycemia, unspecified; R82.71 Bacteriuria; E03.9 Hypothyroidism, unspecified; E78.5 Hyperlipidemia, unspecified
CPT/HCPCS: 80305; 82435-PO; 82565-PO; 82947-PO; 83520-90; 83605-PO; 84132-PO; 84295-PO; 84520-PO; 85014-PO; 86256-90; 86592-90; 86622-90; 87529-90; 92507-GN; 92523-GN; 97116-GP; 97161-GP; 97166-GO; 97535-GO; A9585; G0378; J0133; J0696; J2930; Q9967

== ENCOUNTER → 2018-07-15 | Outpatient (CLI) | payer OTHER | LOC: FIMAGING 09:24 | PROVIDERS: ATTEND Internal Medicine | DX: Z12.31 Encounter for screening mammogram for malignant neoplasm of breast (principal) ==